=== PATIENT | female | born 2000 | race Caucasian/White ===

== ENCOUNTER 2022-05-24 16:35 | Emergency (ER) | payer OTHER ==
[~2022-05-24] VITALS: Ht 154.9 cm; Wt 54.5 kg
[2022-05-24 16:36] VITALS: BP 136/78
[2022-05-24] MEDS ORDERED: JUNETAB PO (16:40)
[2022-05-24] MEDS ORDERED: methylPREDNISolone 125MG 2ML VIAL IM ONE (17:45)
== END 2022-05-24 18:13 | disposition home or self-care (01) ==
LOC: M ED 16:35
DX: L50.9 Urticaria, unspecified (principal); Z79.3 Long term (current) use of hormonal contraceptives
CPT/HCPCS: 96372; 99282; J2930

== ENCOUNTER 2023-12-22 16:38 | Emergency (ER) | payer OTHER ==
[~2023-12-22] VITALS: Ht 154.9 cm; Wt 73.9 kg
[~2023-12-22 16:38] MED LIST: JUNETAB PO
[2023-12-22 19:08] VITALS: BP 129/72; TEMP 98.9; O2SAT 99
[2023-12-22] MEDS: LIDOCAINE 1% MDV 20ML VIAL SC ONE (20:10)
[2023-12-22] MEDS ORDERED: IBUP-1022 PO (20:26)
[2023-12-22] MEDS ORDERED: BACT800T5 PO (20:26)
[2023-12-22] MEDS: BACTRIM 160MG/800MG DS TAB PO ONE (20:37)
== END 2023-12-22 20:43 | disposition home or self-care (01) ==
LOC: M ED 16:38
DX: L02.416 Cutaneous abscess of left lower limb (principal); F17.290 Nicotine dependence, other tobacco product, uncomplicated

== ENCOUNTER 2025-05-09 10:57 | Emergency (ER) | payer OTHER ==
[~2025-05-09] VITALS: Ht 157.5 cm; Wt 71.9 kg
[~2025-05-09 10:57] MED LIST changes: +BACT800T5 PO; +IBUP600T42 PO
[2025-05-09] MEDS ORDERED: DOXY100C3 PO (14:44)
[2025-05-09 14:50] VITALS: BP 138/76; TEMP 98.2; O2SAT 98
[2025-05-12 14:33] LABS: LYME TOTAL ANTIBODY CIA <= 0.90 Index (<=0.90)
== END 2025-05-09 14:53 | disposition home or self-care (01) ==
LOC: M ED 13:13
DX: A69.20 Lyme disease, unspecified (principal); J02.0 Streptococcal pharyngitis; Z79.3 Long term (current) use of hormonal contraceptives